=== PATIENT | female | born 1955 | race Caucasian/White ===

== ENCOUNTER 2018-12-14 10:00 | Inpatient (IN) | payer OTHER ==
[~2018-12-14] VITALS: Ht 154.9 cm; Wt 61.2 kg
[2018-12-14] MEDS ORDERED: OMEPRAZOLE20 MG PO (11:37)
[2018-12-14] MEDS ORDERED: MOBIC7.5 M1 PO ×2 (11:38→12:57)
[2018-12-22] MEDS ORDERED: LORATADINE10 MG PO (09:53)
[2018-12-25] MEDS ORDERED: HYOSCYAMINE0.125 M1 SL (12:43)
[2018-12-25] MEDS ORDERED: ULTRAM50 MG PO (12:45)
== END 2018-12-25 13:46 | disposition home or self-care (01) | DRG 330 ==
LOC: SURH 12-22 07:00 → O/R 12-22 09:15 → SURH 12-22 09:15
PROVIDERS: ADMIT Surgery
PROC: 0DJD8ZZ Inspection of Lower Intestinal Tract, Via Natural or Artificial Opening Endoscopic (ICD-10-PCS; 2018-12-22)
PROC: 0DBN4ZZ Excision of Sigmoid Colon, Percutaneous Endoscopic Approach (ICD-10-PCS; principal; 2018-12-22 07:00)
DX: K57.33 Diverticulitis of large intestine without perforation or abscess with bleeding (principal); K56.51 Intestinal adhesions [bands], with partial obstruction; R19.4 Change in bowel habit; K21.9 Gastro-esophageal reflux disease without esophagitis; Z88.9 Allergy status to unspecified drugs, medicaments and biological substances; K52.89 Other specified noninfective gastroenteritis and colitis

== ENCOUNTER 2019-01-02 06:50 | Inpatient (IN) | payer OTHER ==
[~2019-01-02] VITALS: Ht 154.9 cm; Wt 61.2 kg
[~2019-01-02 06:50] MED LIST: HYOSCYAMINE0.125 M1 SL; LORATADINE10 MG PO; MOBIC7.5 M1 PO; OMEPRAZOLE20 MG PO; ULTRAM50 MG PO
[2019-01-09] MEDS ORDERED: IMODIUM A-D2 M2 PO (17:20)
[2019-01-09] MEDS ORDERED: CHOLESTYRAMINE P4 GM PO (17:20)
[2019-01-09] MEDS ORDERED: Intestinex CAP PO (17:21)
[2019-01-09] MEDS ORDERED: PANTOPRAZOLE SO40 MG PO (17:21)
== END 2019-01-09 19:22 | disposition home or self-care (01) | DRG 379 ==
LOC: ER 06:50 → SURH 11:31
PROVIDERS: ADMIT Surgery
PROC: BW21Y0Z Computerized Tomography (CT Scan) of Abdomen and Pelvis using Other Contrast, Unenhanced and Enhanced (ICD-10-PCS; principal; 2019-01-02)
PROC: BW21Y0Z Computerized Tomography (CT Scan) of Abdomen and Pelvis using Other Contrast, Unenhanced and Enhanced (ICD-10-PCS; 2019-01-09)
DX: K57.33 Diverticulitis of large intestine without perforation or abscess with bleeding (principal); K21.9 Gastro-esophageal reflux disease without esophagitis